=== PATIENT | female | born 1980 | race African-American/Black ===

== ENCOUNTER 2017-01-20 23:27 | Emergency (ER) | payer OTHER ==
[~2017-01-20] VITALS: Ht 162.6 cm; Wt 83.8 kg
[~2017-01-20 23:27] MED LIST: FLEXERIL10 MG PO; MOTRIN600 MG PO; PERCOCET 10/1 TABLET PO; PERCOCET 5/31 TABLET PO; PREDNISONE20 MG PO
[2017-01-21 01:29] LABS: HEMATOCRIT 28.6 % (36.0-46.0); MCH 26.3 PG (29.0-34.0); MCHC 32.5 G/DL (30.0-36.0); MCV 80.8 FL (83-99); MEAN PLAT.VOLUME 9.8 uM^3 (9.5-12.4); PLATELET COUNT 270 K/uL (156-360); RBC DIS.WIDTH-CV 17.5 % (11.8-14.6); RBC DIS.WIDTH-SD 52.3 % (39-53); RED BLOOD COUNT 3.54 M/uL (3.80-5.20); WHITE BLOOD COUNT 12.5 K/uL (4.1-10.2)
[2017-01-21 01:40] LABS: CHLORIDE 106 mEq/L (99-109); POTASSIUM 3.1 mEq/L (3.7-5.4); SODIUM 135 mEq/L (136-147)
[2017-01-21 01:43] LABS: GLUCOSE 106 mg/dL (70-99)
[2017-01-21 01:44] LABS: ANION GAP 10 MEQ/L (2-14)
[2017-01-21 01:45] LABS: TOTAL BILIRUBIN 0.2 mg/dL (0.0-1.0)
[2017-01-21 01:46] LABS: ALKALINE PHOSPHATASE 69 IU/L (3-129); GFR ESTIMATE (CALCULATED) > 59 mL/min/
[2017-01-21 01:47] LABS: UREA NITROGEN (BUN) 9 mg/dL (9-23)
[2017-01-21 02:02] LABS: ADD MIUA? NO; BILIRUBIN NEGATIVE; BLOOD NEGATIVE; COLOR STRAW ((YELLOW)); GLUCOSE (STRIP) NEGATIVE; KETONES NEGATIVE; LEUKOCYTES NEGATIVE; NITRITE NEGATIVE; PROTEIN (STRIP) NEGATIVE; SPECIFIC GRAVITY 1.008 (1.000-1.030); UCUL ADDED? NO; UROBILINOGEN 0.2 MG/DL (0.2-1.0)
[2017-01-21] MEDS ORDERED: DELTASONE20 M1 PO (02:22)
[2017-01-21 02:30] VITALS: BP 117/67
== END 2017-01-21 02:47 | disposition home or self-care (01) ==
LOC: EXP 23:27 → EME 23:27 → EXP 01-21 02:47
PROVIDERS: Physician Assistant
DX: O99.511 Diseases of the respiratory system complicating pregnancy, first trimester (principal); J11.1 Influenza due to unidentified influenza virus with other respiratory manifestations; J45.909 Unspecified asthma, uncomplicated; E87.6 Hypokalemia; Z3A.13 13 weeks gestation of pregnancy; Z91.040 Latex allergy status; Z88.6 Allergy status to analgesic agent
CPT/HCPCS: 71010; 80053; 81003; 85027; 93005; 94640; 99281; 99285; J7030; J7512